=== PATIENT | female | born 1975 | race Caucasian/White ===

== ENCOUNTER 2017-08-16 02:49 | Emergency (ER) | payer OTHER ==
--- NOTE | 2017-08-16 03:10 | PDOC ---
History of Present Illness - General Chief Complaint: Urinary Problem Stated Complaint: INABILITY TO URINATE SINCE 11.30 Time Seen by Provider: 08/16/17 03:01 History Source: Patient Exam Limitations: No Limitations - History of Present Illness Initial Comments: 08/16/17 03:10 This is a 42-year-old healthy female who comes in complaining of urinary retention. Patient last urinated approximately 4 hours ago. Patient denies history of urinary retention treated in the past. Patient denies any new medications. However patient said she has been taking a colon cleanse. Patient she'll be some tablets that have magnesium and potassium minimum otherwise just some gelatin. They are [id number]. Patient denies any recent illness, nausea, vomiting, change in her volume or caliber of her stools any abnormal vaginal bleeding. 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 MEDICATIONS: reviewed ALLERGIES: As per nursing notes Review of Systems General: No fevers or chills, no weakness, no weight loss HEENT: No change in vision. No sore throat,. No ear pain CardioVascular: No chest pain or shortness of breath Respiratory:No cough, or wheezing. Gastrointestinal: no nausea, vomitting, diarrhea or constipation, No rectal bleeding Genitourinary: No dysuria, hematuria, or frequency, urinary retention as per history of present illness Musculoskeletal: No joint or muscle pain or swelling Neurologic: No headache, vertigo, dizziness or loss of consciousness Psychiatric: nor depression Skin: No rashes or easy bruising Endocrine: no increased thirst or abnormal weight change Allergic: no skin or latex allergy All other systems reviewed and normal Exam: General: Well-nourished well-developed individual, no acute distress HEENT: Throat: Normal, tonsils normal, no erythema or exudate Neck: Supple, no meningeal signs, no lymphadenopathy Eyes::Pupils equal reactive and round, extraocular motion intact Chest: Nontender to palpation Cardiac: S1-S2 normal, regular rate and rhythm, no murmurs rubs or gallops Respiratory: Lungs clear to auscultation bilateral Abdomen: Soft, nondistended, normal bowel sounds, nontender to palpation diffusely Extremities: Warm, dry, no cyanosis, clubbing, or edema Skin: No rashes Neuro: Alert and oriented x3, CN II - XII intact, nonfocal exam with normal strength, normal sensation, normal reflexes, normal gait, Psych: Normal mood and affect 08/16/17 03:49 Patient does not want to stay for any of her workup. Patient said she is tired and wants to go home and go to bed so is refusing to stay for her workup. Patient will sign out AGAINST MEDICAL ADVICE 08/16/17 03:51 Patient understands that by leaving AGAINST MEDICAL ADVICE she is accepting responsibility for any adverse outcome. Past History - Past Medical History Allergies/Adverse Reactions: Allergies Allergy/AdvReac Type Severity Reaction Status Date / Time No Known Allergies Allergy Verified 08/16/17 03:19 Home Medications: Ambulatory Orders Secukinumab [Cosentyx Pen (2 Pens)] 150 mg SQ MONTHLY 08/16/17 ED Treatment Course - LABORATORY CBC & Chemistry Diagram: 08/16/17 03:22 08/16/17 03:22 *DC/Admit/Observation/Transfer Diagnosis at time of Disposition: Urinary retention - Discharge Dispostion Disposition: AGAINST MEDICAL ADVICE Condition at time of disposition: Stable Admit: No - Referrals Referrals: Adonis Salter MD [Staff Physician] - - Patient Instructions Additional Instructions: You're leaving AGAINST MEDICAL ADVICE by leaving AGAINST MEDICAL ADVICE you are accepting the responsibility for any adverse medical outcome as a result of your leaving AGAINST MEDICAL ADVICE Wear the leg bag and empty as needed. Call your primary care doctor today for referral to a urologist follow-up with a urologist as soon as possible. Return to the emergency department immediately with ANY new, persistent or worsening symptoms. Continue any medications as previously prescribed by your physician. You should follow up with your primary doctor as soon as possible regarding today's emergency department visit. . Please make sure your doctor reviews the results of your emergency evaluation. Thank you for coming to the Emergency Department today for your care. It was a pleasure to see you today. Please note that your evaluation is INCOMPLETE until you follow-up with your doctor. - Post Discharge Activity
[2017-08-16] MEDS ORDERED: SODIUM CHLORIDE 1,000 ML IV ONE (03:11)
[2017-08-16 03:27] VITALS: PULSE 102; TEMP 97.5; BMI 29.2
[2017-08-16 03:39] VITALS: BP 153/98
[2017-08-16 03:59] LABS: URINE APPEARANCE CLEAR; URINE BILIRUBIN NEGATIVE (NEGATIVE); URINE BLOOD NEGATIVE (NEGATIVE); URINE COLOR COLORLESS; URINE GLUCOSE (UA) NEGATIVE (NEGATIVE); URINE KETONE NEGATIVE (NEGATIVE); URINE LEUK ESTERASE NEGATIVE (NEGATIVE); URINE NITRITE NEGATIVE (NEGATIVE); URINE PROTEIN NEGATIVE (NEGATIVE); URINE UROBILINOGEN NEGATIVE mg/dL (0.2-1.0)
[2017-08-16 04:21] LABS: BASO % 0.7 % (0-2.0); EOS % 2.9 % (0-4.5); HEMATOCRIT 35.4 % (32.4-45.2); HEMOGLOBIN 11.6 GM/dL (10.7-15.3); LYMPH % 20.9 % (8-40); MCH 30.9 pg (25.7-33.7); MCHC 32.7 g/dl (32.0-36.0); MEAN CELL VOLUME 94.5 fl (80-96); MEAN PLT VOLUME 9.4 fl (7.5-11.1); MONO % 6.7 % (3.8-10.2); NEUT % 68.8 % (42.8-82.8); PLATELET COUNT 279 K/MM3 (134-434); RBC 3.75 M/mm3 (3.60-5.2); RDW 16.3 % (11.6-15.6); WHITE BLOOD COUNT 9.4 K/mm3 (4.0-10.0)
[2017-08-16 04:44] LABS: ALBUMIN 3.5 g/dl (3.4-5.0); ALK PHOS 66 U/L (45-117); ANION GAP 9 (8-16); BILIRUBIN,TOTAL 0.2 mg/dL (0.2-1.0); BLOOD UREA NITROGEN 11 mg/dL (7-18); CHLORIDE 100 mmol/L (98-107); CO2 25 mmol/L (21-32); CREATININE 0.5 mg/dL (0.55-1.02); GLUCOSE,RANDOM 106 mg/dL (74-106); POTASSIUM 3.7 mmol/L (3.5-5.1); SGOT/AST 39 U/L (15-37); SGPT/ALT 63 U/L (12-78); SODIUM 134 mmol/L (136-145); TOT PROT 7.1 g/dl (6.4-8.2)
== END 2017-08-16 03:59 | disposition left against medical advice (07) ==
LOC: FER 02:49
DX: R33.9 Retention of urine, unspecified (principal)
CPT/HCPCS: 36415; 80053; 81003; 84703; 85025; 99282-25

== ENCOUNTER 2017-09-07 03:38 | Emergency (ER) | payer OTHER ==
[2017-09-07 03:54] VITALS: BP 155/94; PULSE 102; TEMP 97.8; BMI 29.2
--- NOTE | 2017-09-07 04:35 | PDOC ---
History of Present Illness - General Chief Complaint: Urinary Problem Stated Complaint: INABILITY TO URINATE Time Seen by Provider: 09/07/17 03:59 - History of Present Illness Initial Comments: 09/07/17 06:41 recurrent urinary retention (second episode) presents with suprapubic abd pain and decreased urine output Timing/Duration: 24 hours Severity: moderate Modifying Factors: worse with: movement, rest Associated Symptoms: denies: chest pain, fever/chills, nausea/vomiting Past History - Past Medical History Allergies/Adverse Reactions: Allergies Allergy/AdvReac Type Severity Reaction Status Date / Time No Known Allergies Allergy Verified 09/07/17 03:48 Home Medications: Ambulatory Orders Secukinumab [Cosentyx Pen (2 Pens)] 150 mg SQ MONTHLY 08/16/17 COPD: No Disorders: Yes - Suicide/Smoking/Psychosocial Hx Smoking History: Current every day smoker Have you smoked in the past 12 months: Yes Number of Cigarettes Smoked Daily: 10 Information on smoking cessation initiated: Yes 'Breaking Loose' booklet given: 08/16/17 Hx Alcohol Use: No Drug/Substance Use Hx: No Substance Use Type: None Review of Systems - Review of Systems Able to Perform ROS?: Yes All Other Systems: Reviewed and Negative *Physical Exam - Vital Signs Last Vital Signs Temp Pulse Resp BP Pulse Ox 97.8 F 102 H 18 155/94 96 09/07/17 03:49 09/07/17 03:49 09/07/17 03:49 09/07/17 03:49 09/07/17 03:49 - Physical Exam General Appearance: Yes: Apparent Distress HEENT: positive: Normal Voice Neck: negative: Decreased range of motion Respiratory/Chest: positive: Lungs Clear Cardiovascular: positive: Regular Rhythm Gastrointestinal/Abdominal: positive: Tender, Distended Lymphatic: negative: Adenopathy Musculoskeletal: positive: Normal Inspection Extremity: positive: Normal Capillary Refill Integumentary: positive: Normal Color Neurologic: positive: Alert Medical Decision Making - Medical Decision Making 09/07/17 06:43 recurrent urinary retention. pt reports that believes secondary to anatomy leg bag fu *DC/Admit/Observation/Transfer Diagnosis at time of Disposition: Urinary retention - Discharge Dispostion Disposition: HOME Condition at time of disposition: Stable - Referrals Referrals: Alexander Alvarez MD., MD [Primary Care Provider] - Call tomorrow - Patient Instructions Printed Discharge Instructions: DI for Urinary Retention in Women, Smoking Cessation - Post Discharge Activity
== END 2017-09-07 04:02 | disposition home or self-care (01) ==
LOC: FER 03:38
PROC: 0T9B70Z Drainage of Bladder with Drainage Device, Via Natural or Artificial Opening (ICD-10-PCS; principal; 2017-09-07)
DX: R33.9 Retention of urine, unspecified (principal); F17.210 Nicotine dependence, cigarettes, uncomplicated
CPT/HCPCS: 51702; 99282-25

== ENCOUNTER 2017-10-02 05:28 | Emergency (ER) | payer OTHER ==
--- NOTE | 2017-10-02 05:30 | PDOC ---
History of Present Illness - General Chief Complaint: Urinary Problem Stated Complaint: URINARY RETENTION Time Seen by Provider: 10/02/17 05:29 - History of Present Illness Initial Comments: 10/02/17 05:51 This 42-year-old woman with a history of psoriasis and recent history of urinary retention presents with inability to urinate for the last several hours. Urinary retention began about 6 weeks ago. She has required catheterization twice since then (most recently approximately 3 weeks ago). She has been seen by Dr. Alvarez urology staff; according to the patient, workup has been negative so far. Neurogenic bladder is being ruled out by MRI of the brain and cervical spine inapproximately 10 days. Meanwhile, the patient is maintained on Flomax 0.4 mg daily. Patient denies dysuria/hematuria/frequent or urgent urination prior to onset of retention. She has not had any nausea/vomiting/flank pain/fever/chills. Past History - Past Medical History Allergies/Adverse Reactions: Allergies Allergy/AdvReac Type Severity Reaction Status Date / Time No Known Allergies Allergy Verified 09/07/17 03:48 Home Medications: Ambulatory Orders Tamsulosin HCl 0.4 mg PO DAILY 10/02/17 COPD: No Disorders: Yes - Suicide/Smoking/Psychosocial Hx Smoking History: Current every day smoker Have you smoked in the past 12 months: Yes Number of Cigarettes Smoked Daily: 10 'Breaking Loose' booklet given: 08/16/17 Hx Alcohol Use: No Drug/Substance Use Hx: No Substance Use Type: None Review of Systems - Review of Systems Able to Perform ROS?: Yes Comments:: 12 point review of systems is negative except for what is noted in the history of present illness *Physical Exam - Physical Exam Comments: GENERAL: Adult female, in moderate distress secondary to abdominal distention/ urinary retention ABDOMEN:.normal bowel sounds; markedly distended, mildly tender; no masses or rebound/guarding EXTREMITIES: Normal range of motion, no edema. No clubbing or cyanosis. No erythema, or tenderness. NEUROLOGICAL: Cranial nerves II through XII grossly intact. Normal speech. No focal neurological deficits. MUSCULOSKELETAL: Back non-tender to palpation, no CVA tenderness SKIN: Warm, Dry, normal turgor, no rashes or lesions noted. Progress Note - Progress Note Progress Note: Bladder scan by Bony Jackson RN : 530 ml 16 [place] inserted without difficulty and 700 mL of clear, straw-colored urine obtained. Urinalysis and urine culture and sensitivity sent Leg bag attached. Patient will follow-up with Dr. Alvarez, tomorrow 10/03 *DC/Admit/Observation/Transfer Diagnosis at time of Disposition: Urinary retention - Discharge Dispostion Condition at time of disposition: Stable - Referrals Referrals: ON STAFF,NOT [Primary Care Provider] - Alexander Alvarez MD., MD [Staff Physician] - 2 Days - Patient Instructions Printed Discharge Instructions: DI for Urinary Retention in Women Additional Instructions: followup with Dr Alvarez on Tuesday return to ER if you have any further pain/retention - Post Discharge Activity
[2017-10-02 05:36] VITALS: BP 156/90; PULSE 116; TEMP 97.3; BMI 24.9
== END 2017-10-02 06:12 | disposition home or self-care (01) ==
LOC: FER 05:28
PROC: 0T9B70Z Drainage of Bladder with Drainage Device, Via Natural or Artificial Opening (ICD-10-PCS; principal; 2017-10-02)
DX: R33.9 Retention of urine, unspecified (principal); L40.9 Psoriasis, unspecified; F17.210 Nicotine dependence, cigarettes, uncomplicated
CPT/HCPCS: 84703; 87086; 99283-25

== ENCOUNTER 2017-10-11 02:09 | Emergency (ER) | payer OTHER ==
[2017-10-11 02:27] VITALS: BP 148/93; PULSE 108; TEMP 97.7; BMI 30.7
--- NOTE | 2017-10-11 02:40 | PDOC ---
History of Present Illness - General Chief Complaint: Urinary Problem Stated Complaint: URINE RETENTION Time Seen by Provider: 10/11/17 02:16 Past History - Past Medical History Allergies/Adverse Reactions: Allergies Allergy/AdvReac Type Severity Reaction Status Date / Time No Known Allergies Allergy Verified 10/11/17 02:12 Home Medications: Ambulatory Orders Tamsulosin HCl 0.4 mg PO DAILY 10/02/17 COPD: No Disorders: Yes - Suicide/Smoking/Psychosocial Hx Smoking History: Current every day smoker Have you smoked in the past 12 months: Yes Number of Cigarettes Smoked Daily: 10 Information on smoking cessation initiated: Yes 'Breaking Loose' booklet given: 10/11/17 Hx Alcohol Use: No Drug/Substance Use Hx: No Substance Use Type: None *Physical Exam - Vital Signs Last Vital Signs Temp Pulse Resp BP Pulse Ox 97.7 F 108 H 18 148/93 98 10/11/17 02:20 10/11/17 02:20 10/11/17 02:20 10/11/17 02:20 10/11/17 02:20 *DC/Admit/Observation/Transfer Diagnosis at time of Disposition: Urinary retention - Discharge Dispostion Disposition: HOME Admit: No - Referrals - Patient Instructions Additional Instructions: Wear the leg bag. Call your urologist in the morning and get an appointment. Return to the emergency department immediately with ANY new, persistent or worsening symptoms. Continue any medications as previously prescribed by your physician. You should follow up with your primary doctor as soon as possible regarding today's emergency department visit. . Please make sure your doctor reviews the results of your emergency evaluation. Thank you for coming to the Emergency Department today for your care. It was a pleasure to see you today. Please note that your evaluation is INCOMPLETE until you follow-up with your doctor. - Post Discharge Activity
== END 2017-10-11 02:48 | disposition home or self-care (01) ==
LOC: FER 02:09
DX: F41.9 Anxiety disorder, unspecified (principal)
CPT/HCPCS: 99281-25

== ENCOUNTER 2018-06-28 18:21 | Emergency (ER) | payer OTHER ==
--- NOTE | 2018-06-28 18:25 | PDOC ---
History of Present Illness - General History Source: Patient Exam Limitations: No Limitations - History of Present Illness Initial Comments: 06/28/18 18:45 The patient is a 43 year old female, with a significant past medical history of recurrent hypertension, anxiety, 30 years of daily ppd tobacco smoking, and daily ETOH (4-5 drinks), who presents to the emergency department today from urgent care with higher than usual blood pressure. The patient states she had a routine physical last week with her PCP who noted the patients BP was 160s over something and advised her to have a BP recheck a week later. She states she went to [facility] for lab work on Tuesday afternoon and her BP was noted to be 180/101 at the time. She states she called her PCP who then called her today and advised her to get to an urgent care or emergency department. THe patient reportedly went to urgent care and was advised to come right to the ED. The patient denies any complaints of pain. She denies any recent stressors. The patient denies chest pain, shortness of breath, headache and dizziness. The patient denies fever, chills, nausea, vomit, diarrhea and constipation. The patient denies dysuria, frequency, urgency and hematuria. Allergies: NKDA Family Hx: Diabetes (Father-) Social history: daily ETOH, daily ppd smoker, employed <Deepthi Bejarano - Last Filed: 06/28/18 18:45> <Micheal Hernandez - Last Filed: 06/29/18 10:56> - General Chief Complaint: Blood Pressure Problem Stated Complaint: EVALUATION OF BLOOD PRESSURE Time Seen by Provider: 06/28/18 18:24 Past History <Deepthi Bejarano - Last Filed: 06/28/18 18:45> - Past Medical History COPD: No Disorders: Yes - Suicide/Smoking/Psychosocial Hx Smoking History: Current every day smoker Have you smoked in the past 12 months: Yes Number of Cigarettes Smoked Daily: 10 'Breaking Loose' booklet given: 10/11/17 Hx Alcohol Use: No Drug/Substance Use Hx: No Substance Use Type: None <Micheal Hernandez - Last Filed: 06/29/18 10:56> - Past Medical History Allergies/Adverse Reactions: Allergies Allergy/AdvReac Type Severity Reaction Status Date / Time No Known Allergies Allergy Verified 10/11/17 02:12 Home Medications: Ambulatory Orders Tamsulosin HCl 0.4 mg PO DAILY 10/02/17 Losartan Potassium [Cozaar -] 50 mg PO DAILY #7 tablet 06/28/18 Review of Systems - Review of Systems Able to Perform ROS?: Yes Comments:: 06/28/18 18:46 CONSTITUTIONAL: Absent: fever, chills, diaphoresis, generalized weakness, malaise, loss of appetite HEENT: Absent: rhinorrhea, nasal congestion, throat pain, throat swelling, difficulty swallowing, mouth swelling, ear pain, eye pain, visual Changes CARDIOVASCULAR: (+) hypertension. Absent: chest pain, syncope, palpitations, irregular heart rate, lightheadedness, peripheral edema RESPIRATORY: Absent: cough, shortness of breath, dyspnea with exertion, orthopnea, wheezing, stridor, hemoptysis GASTROINTESTINAL: Absent: abdominal pain, abdominal distension, nausea, vomiting, diarrhea, constipation, melena, hematochezia GENITOURINARY: Absent: dysuria, frequency, urgency, hesitancy, hematuria, flank pain, genital pain MUSCULOSKELETAL: Absent: myalgia, arthralgia, joint swelling SKIN: Absent: rash, itching, pallor HEMATOLOGIC/IMMUNOLOGIC: Absent: easy bleeding, easy bruising, lymphadenopathy, frequent infections ENDOCRINE: Absent: unexplained weight gain, unexplained weight loss, heat intolerance, cold intolerance NEUROLOGIC: Absent: headache, focal weakness or paresthesia, dizziness, unsteady gait, seizure, mental status changes, bladder or bowel incontinence PSYCHIATRIC: Absent: anxiety, depression, suicidal or homicidal ideation, hallucinations <Deepthi Bejarano - Last Filed: 06/28/18 18:45> *Physical Exam - Vital Signs Last Vital Signs Temp Pulse Resp BP Pulse Ox 98.8 F 88 20 205/118 H 100 06/28/18 18:22 06/28/18 18:22 06/28/18 18:22 06/28/18 18:22 06/28/18 18:22 - Physical Exam Comments: 06/28/18 18:46 GENERAL: Well developed, well nourished. Awake and alert. No acute distress. HEENT: Normocephalic, atraumatic. PERRLA, EOMI. No conjunctival pallor. Sclera are non- icteric. Moist mucous membranes. Oropharynx is clear. NECK: Supple. Full ROM. No JVD. Carotid pulses 2+ and symmetric, without bruits. No thyromegaly. No lymphadenopathy. CARDIOVASCULAR: Regular rate and rhythm. No murmurs, rubs, or gallops. Distal pulses are 2+ and symmetric. PULMONARY: (+) slight wheezing on exam. No evidence of respiratory distress. Lungs clear to auscultation bilaterally. No rales or rhonchi. ABDOMINAL: Soft. Non-tender. Non-distended. No rebound or guarding. No organomegaly. Normoactive bowel sounds. MUSCULOSKELETAL Normal range of motion at all joints. No bony deformities or tenderness. No CVA tenderness. EXTREMITIES: No cyanosis. No clubbing. No edema. No calf tenderness. SKIN: Warm and dry. Normal capillary refill. No rashes. No jaundice. NEUROLOGICAL: Alert, awake, appropriate. Cranial nerves 2-12 intact. No motor deficits in the upper extremities and lower extremities. Normoreflexic in the upper and lower extremities. Normal speech. Gait is normal without ataxia. PSYCHIATRIC: Cooperative. Good eye contact. Appropriate mood and affect. <Deepthi Bejarano - Last Filed: 06/28/18 18:45> ED Treatment Course - LABORATORY CBC & Chemistry Diagram: 06/28/18 18:53 06/28/18 18:53 <Micheal Hernandez - Last Filed: 06/29/18 10:56> Medical Decision Making - Medical Decision Making 06/28/18 18:39 Patient with recurrent high blood pressure readings, higher today than usual, on no medications but with multiple risk factors including smoking, alcohol, family history of diabetes. No headaches or chest pain, but has what sounds like mild dyspnea on exertion which seems to be slowly worsening over the course of months.. EKG is normal. Normal sinus rhythm, normal axes and intervals, no ST-T wave changes. Cardiac enzymes, CBC, and chemistries pending. Signed out to Dr. Renteria at 7 PM pending further observation and results of blood work, to consider initiation of blood pressure medication. 06/29/18 10:55 <Micheal Hernandez - Last Filed: 06/29/18 10:56> *DC/Admit/Observation/Transfer - Attestations Scribe Attestion: 06/28/18 18:47 Documentation prepared by Deepthi Bejarano, acting as medical massage therapist for Micheal Fonseca MD <Deepthi Bejarano - Last Filed: 06/28/18 18:45> <Micheal Hernandez - Last Filed: 06/29/18 10:56> Diagnosis at time of Disposition: Essential hypertension - Discharge Dispostion Disposition: HOME Condition at time of disposition: Stable - Prescriptions Prescriptions: Losartan Potassium [Cozaar -] 50 mg PO DAILY #7 tablet - Patient Instructions Printed Discharge Instructions: DI for High Blood Pressure Additional Instructions: I sent a prescription to her pharmacy for losartan which is a medication for hypertension. Get the prescription filled and take one tablet a day. Follow-up with your doctor next week as I am only giving U1 week's worth of losartan. Return to the emergency department immediately with ANY new, persistent or worsening symptoms. Continue any medications as previously prescribed by your physician. You should follow up with your primary doctor as soon as possible regarding today's emergency department visit. . Please make sure your doctor reviews the results of your emergency evaluation. Thank you for coming to the Emergency Department today for your care. It was a pleasure to see you today. Please note that your evaluation is INCOMPLETE until you follow-up with your doctor.
[2018-06-28 18:29] VITALS: TEMP 98.8; BMI 29.2
[2018-06-28 18:58] LABS: PH,URINE 6.5 (4.5-8); URINE APPEARANCE Clear; URINE BILIRUBIN Negative (NEGATIVE); URINE COLOR Yellow; URINE GLUCOSE (UA) Negative (NEGATIVE); URINE KETONE Negative (NEGATIVE); URINE LEUK ESTERASE Negative (NEGATIVE); URINE NITRITE Negative (NEGATIVE); URINE PROTEIN Negative (NEGATIVE); URINE UROBILINOGEN 0.2 (0.2-1.0)
[2018-06-28 19:01] LABS: BASO % 2.3 % (0-2.0); EOS % 1.5 % (0-4.5); HEMATOCRIT 40.7 % (32.4-45.2); HEMOGLOBIN 13.4 GM/dl (10.7-15.3); LYMPH % 27.3 % (8-40); MCH 32.8 pg (25.7-33.7); MCHC 32.9 g/dl (32.0-36.0); MEAN CELL VOLUME 99.8 fl (80-96); MEAN PLT VOLUME 9.3 fl (7.5-11.1); MONO % 6.1 % (3.8-10.2); NEUT % 62.8 % (42.8-82.8); PLATELET COUNT 284 K/MM3 (134-434); RBC 4.07 M/mm3 (3.60-5.2); RDW 14.4 % (11.6-15.6); WHITE BLOOD COUNT 10.2 K/mm3 (4.0-10.8)
[2018-06-28] MEDS ORDERED: cloNIDine HCL 0.1 MG TABLET PO ONE (19:11)
[2018-06-28 19:13] LABS: HCG,QUALITATIVE URINE Negative
[2018-06-28 19:15] LABS: ALK PHOS 48 U/L (32-92); ANION GAP 11 MMOL/L (8-16); BILIRUBIN,TOTAL 1.6 mg/dl (0.2-1.0); BLOOD UREA NITROGEN 13 mg/dl (7-18); CALCIUM 9.7 mg/dl (8.4-10.2); CHLORIDE 101 mmol/L (98-107); CO2 19 mmol/L (22-28); CREATININE 0.6 mg/dl (0.6-1.3); GLUCOSE,RANDOM 96 mg/dl (74-106); SGOT/AST 60 U/L (10-42); SGPT/ALT 42 U/L (10-40); SODIUM 131 mmol/L (136-145); TOT PROT 7.3 g/dl (6.4-8.3)
[2018-06-28 19:18] LABS: POTASSIUM 5.3 mmol/L (3.5-5.1)
--- NOTE | 2018-06-28 19:23 | PDOC ---
*Physical Exam - Vital Signs Last Vital Signs Temp Pulse Resp BP Pulse Ox 98.8 F 88 20 205/118 H 100 06/28/18 18:22 06/28/18 18:22 06/28/18 18:22 06/28/18 18:22 06/28/18 18:22 ED Treatment Course - LABORATORY CBC & Chemistry Diagram: 06/28/18 18:53 06/28/18 18:53 - ADDITIONAL ORDERS Additional order review: Laboratory Results 06/28/18 18:53 Urine Color Yellow Urine Appearance Clear Urine pH 6.5 Ur Specific [place] <= 1.005 L Urine Protein Negative Urine Glucose (UA) Negative Urine Ketones Negative Urine Blood Negative Urine Nitrite Negative Urine Bilirubin Negative Urine Urobilinogen 0.2 Ur Leukocyte Esterase Negative 06/28/18 18:53 RBC 4.07 MCV 99.8 H MCHC 32.9 RDW 14.4 MPV 9.3 Neutrophils % 62.8 Lymphocytes % 27.3 Monocytes % 6.1 Eosinophils % 1.5 Basophils % 2.3 H Progress Note - Progress Note Progress Note: Care of this patient was transferred to [place] from Dr. Hernandez at 7pm. Patient is a 43 year old female sent in by her PMD for evaluation of elevated Blood Prssure. Patient otherwise does not have any complaints Patient blood pressure on arrival in the emergency room was 201/118. Patient otherwise without complaints. Patient's labs were sent and I gave her clonidine 0.2. Patient's chemistries were hemolyzed but she refused repeat labs so some of them are abnormal. Patient is aware that her potassium was elevated secondary to hemolysis and that the results were affected by the hemolysis. Patient discharged home Prescription sent to patient's pharmacy for losartan *DC/Admit/Observation/Transfer Diagnosis at time of Disposition: Essential hypertension - Discharge Dispostion Disposition: HOME Condition at time of disposition: Stable Decision to Admit order: No - Referrals - Patient Instructions Printed Discharge Instructions: DI for High Blood Pressure Additional Instructions: I sent a prescription to her pharmacy for losartan which is a medication for hypertension. Get the prescription filled and take one tablet a day. Follow-up with your doctor next week as I am only giving U1 week's worth of losartan. Return to the emergency department immediately with ANY new, persistent or worsening symptoms. Continue any medications as previously prescribed by your physician. You should follow up with your primary doctor as soon as possible regarding today's emergency department visit. . Please make sure your doctor reviews the results of your emergency evaluation. Thank you for coming to the Emergency Department today for your care. It was a pleasure to see you today. Please note that your evaluation is INCOMPLETE until you follow-up with your doctor. - Post Discharge Activity
[2018-06-28] MEDS ORDERED: cloNIDine HCL 0.1 MG TABLET ONE (19:25)
[2018-06-28 20:08] VITALS: BP 187/114; PULSE 80
[2018-06-28] MEDS ORDERED: LOSARTAN POTASSIUM 50 MG TABLET (FP) PO ONE (20:08)
--- NOTE | 2018-06-30 09:49 | EKG ---
Test Reason : Blood Pressure : / mmHG Vent. Rate : 086 BPM Atrial Rate : 086 BPM P-R Int : 144 ms QRS Dur : 088 ms QT Int : 380 ms P-R-T Axes : 065 016 070 degrees QTc Int : 454 ms NORMAL SINUS RHYTHM NO PREVIOUS ECGS AVAILABLE Confirmed by TONY GALVAN MD ([id number]) on 06/30/2018 9:49:02 AM Referred By: MD MCKEON Confirmed By:TONY GALVAN MD
== END 2018-06-28 20:35 | disposition home or self-care (01) ==
LOC: FER 18:21
DX: I10 Essential (primary) hypertension (principal); F41.9 Anxiety disorder, unspecified; F17.210 Nicotine dependence, cigarettes, uncomplicated
CPT/HCPCS: 36415; 80053; 81003; 82550; 84484; 84703; 85025; 93005; 99282-25; J0735

== ENCOUNTER 2020-06-20 13:55 | Emergency (ER) | payer OTHER ==
[2020-06-20 14:25] VITALS: BP 179/103; PULSE 110; TEMP 98.8; BMI 26.6
[2020-06-20] MEDS ORDERED: LIDOCAINE 5% TOPICAL PATCH TP ONE (14:29)
[2020-06-20] MEDS ORDERED: LIDOCAINE 5% TOPICAL PATCH ONE (14:33)
== END 2020-06-20 14:38 | disposition home or self-care (01) ==
LOC: FER 13:55
DX: M79.652 Pain in left thigh (principal)
CPT/HCPCS: 99284-25